=== PATIENT | female | born 1990 | race Caucasian/White ===

== ENCOUNTER 2017-08-09 19:38 | Emergency (ER) | payer OTHER ==
[2017-08-09 21:05] VITALS: BP 143/68
--- NOTE | 2017-08-09 21:24 | ED ---
Abdominal Pain/Female - HPI Summary HPI Summary: 27 yr old female with epigastric pain that is constant since 3 pm today, and worse with eating. Pain 5/10 and radiates into her back. She denies vomiting but has had nausea. She had diarrhea on Monday but none since then. - History of Current Complaint Chief Complaint: UCAbdominalPain Stated Complaint: STOMACH PAIN Time Seen by Provider: 08/09/17 21:16 Hx Last Menstrual Period: 07/22/17 Pain Intensity: 5 Allergies/Adverse Reactions: Allergies Allergy/AdvReac Type Severity Reaction Status Date / Time No Known Allergies Allergy Verified 08/09/17 21:05 Home Medications: Home Medications Levothyroxine TAB* [Synthroid TAB*] 125 mcg PO 0800 08/09/17 [History Confirmed 08/09/17] PMH/Surg Hx/FS Hx/Imm Hx Endocrine/Hematology History: Reports: Hx Thyroid Disease - hypo - Surgical History Hx Anesthesia Reactions: No Infectious Disease History: No Infectious Disease History: Denies: Traveled Outside the [place] in Last 30 Days - Family History Known Family History: Positive: Other - thyroid - Social History Occupation: Employed Full-time - at [employer] Alcohol Use: Rare Substance Use Type: Reports: None Smoking Status (MU): Never Smoked Tobacco Review of Systems Constitutional: Negative Positive: Abdominal Pain - epigastric, Diarrhea - monday, normal BM today, Nausea All Other Systems Reviewed And Are Negative: Yes Physical Exam Triage Information Reviewed: Yes Vital Signs On Initial Exam: Initial Vitals Temp Pulse Resp BP Pulse Ox 98.3 F 76 16 143/68 100 08/09/17 20:57 08/09/17 20:57 08/09/17 20:57 08/09/17 20:57 08/09/17 20:57 Vital Signs Reviewed: Yes Appearance: Positive: Well-Appearing, No Pain Distress Skin: Positive: Warm, Skin Color Reflects Adequate Perfusion Head/Face: Positive: Normal Head/Face Inspection Eyes: Positive: EOMI ENT: Positive: Normal ENT inspection Neck: Positive: Nontender Respiratory/Lung Sounds: Positive: Clear to Auscultation, Breath Sounds Present Cardiovascular: Positive: RRR. Negative: Murmur Abdomen Description: Positive: Other: - mild epigastric tenderness. Negative: Distended, Guarding Musculoskeletal: Positive: Strength/ROM Intact Neurological: Positive: Sensory/Motor Intact, Alert, Oriented to Person Place, Time, CN Intact II-III Psychiatric: Positive: Normal - [place] Coma Scale Best Eye Response: 4 - Spontaneous Best Motor Response: 6 - Obeys Commands Best Verbal Response: 5 - Oriented Coma Scale Total: 15 Diagnostics - Vital Signs Vital Signs Temp Pulse Resp BP Pulse Ox 08/09/17 20:57 98.3 F 76 16 143/68 100 - Laboratory Lab Statement: Any lab studies that have been ordered have been reviewed, and results considered in the medical decision making process. Abdominal Pain Fem Course/Dx - Course Course Of Treatment: 27 yr old female with epigastric pain. She has been told to go to the ER for further evaluation this evening. - Diagnoses Provider Diagnoses: Epigastric pain, Hypertension Discharge - Discharge Plan Condition: Good Disposition: HOME Patient Education Materials: Acute Abdominal Pain (ED), Hypertension (ED) Referrals: Siobhan Cordova MD [Primary Care Provider] - Additional Instructions: you should go to the ER now for further evaluation of your upper abdominal pain which could be pancreatitis, gallstones, ulcers among other things. Delaying going could make your condition worse.
== END 2017-08-09 21:30 | disposition home or self-care (01) ==
LOC: UCCORT 19:38
DX: R10.13 Epigastric pain (principal); R19.7 Diarrhea, unspecified; R11.0 Nausea; I10 Essential (primary) hypertension; E03.9 Hypothyroidism, unspecified
CPT/HCPCS: 99201; G0463